=== PATIENT | male | born 1950 | race Hispanic/Latino ===

== ENCOUNTER → 2018-05-26 | Outpatient (CLI) | payer OTHER ==
[~2018-05-26] MED LIST: ALBUTEROL SULFATE 0.083% 2.5 MG/3 ML INH IH ONE
== END | disposition home or self-care (01) ==
LOC: RESP 10:07
PROVIDERS: ATTEND Internal Medicine Cardiovascular Disease
DX: R06.02 Shortness of breath (principal); R06.00 Dyspnea, unspecified
CPT/HCPCS: 94060; 94727; 94729

== ENCOUNTER → 2018-06-01 | Outpatient (CLI) | payer OTHER ==
[~2018-06-01] MED LIST changes: -ALBUTEROL SULFATE 0.083% 2.5 MG/3 ML INH IH ONE; +REGADENOSON 0.4 MG/5 ML PF SYG IVP SCH
== END | disposition home or self-care (01) ==
LOC: SHCH 08:01
PROVIDERS: ATTEND Internal Medicine Cardiovascular Disease
DX: I99.8 Other disorder of circulatory system (principal)
CPT/HCPCS: 78452; 93017; 96374; A9500 ×2; J2785

== ENCOUNTER → 2018-09-14 | Outpatient (CLI) | payer OTHER ==
[~2018-09-14] MED LIST changes: +ASPI-891 PO; +ATOR20TA65 PO; +FLUC100T8 PO; +FURO40TA5 PO; +METO25 PO; +NYST5ORA7 PO; +POTA-79 PO; -REGADENOSON 0.4 MG/5 ML PF SYG IVP SCH; +TAMS0.4C32 PO; +TRAM50TA4 PO; +XALA2.5OS OU
== END | disposition home or self-care (01) ==
LOC: SHCH 15:03
PROVIDERS: ATTEND Internal Medicine Cardiovascular Disease
DX: I82.402 Acute embolism and thrombosis of unspecified deep veins of left lower extremity (principal)
CPT/HCPCS: 93971

== ENCOUNTER → 2018-11-23 | Outpatient (CLI) | payer OTHER ==
[~2018-11-23] MED LIST changes: +REGADENOSON 0.4 MG/5 ML PF SYG IVP SCH
== END | disposition home or self-care (01) ==
LOC: SHCH 10:00
PROVIDERS: ATTEND Internal Medicine Cardiovascular Disease
DX: I25.9 Chronic ischemic heart disease, unspecified (principal); I25.10 Atherosclerotic heart disease of native coronary artery without angina pectoris
CPT/HCPCS: 78452; 93017; 96374; A9500 ×2; J2785

== ENCOUNTER → 2022-05-26 | Outpatient (CLI) | payer OTHER ==
[~2022-05-26] MED LIST changes: -ASPI-891 PO; +ATOR10 PO; -ATOR20TA65 PO; +ESCI-8 PO; -FLUC100T8 PO; +LEVO50TA11 PO; +LOSA25TA41 PO; +METO-408 PO; -METO25 PO; -NYST5ORA7 PO; +OXYB5TAB15 PO; -REGADENOSON 0.4 MG/5 ML PF SYG IVP SCH; +TAMS-1 PO; -TAMS0.4C32 PO; -TRAM50TA4 PO; -XALA2.5OS OU
[2022-05-26 12:46] LABS: CREATININE 1.1 mg/dL (0.5-1.5); POTASSIUM 4.2 mmol/L (3.5-5.1)
== END | disposition home or self-care (01) ==
LOC: LAB 11:51
PROVIDERS: ATTEND Internal Medicine Cardiovascular Disease
DX: I25.10 Atherosclerotic heart disease of native coronary artery without angina pectoris (principal); I10 Essential (primary) hypertension
CPT/HCPCS: 36415; 80048

== ENCOUNTER → 2023-01-14 | Outpatient (CLI) | payer OTHER ==
[~2023-01-14] MED LIST changes: +POTA-364 PO; -POTA-79 PO
== END | disposition home or self-care (01) ==
LOC: RESP 12:51
PROVIDERS: ATTEND Internal Medicine Cardiovascular Disease
DX: R06.02 Shortness of breath (principal); R06.00 Dyspnea, unspecified
CPT/HCPCS: 94010

== ENCOUNTER → 2023-05-08 | Outpatient (CLI) | payer OTHER ==
[~2023-05-08] MED LIST changes: -OXYB5TAB15 PO; +OXYB5TAB20 PO
[2023-05-08 12:30] LABS: BASOPHILS # (AUTO) 0.02 K/uL (0.00-0.20); BASOPHILS % (AUTO) 0.2 % (0.0-5.0); EOSINOPHILS # (AUTO) 0.04 K/uL (0.00-0.70); EOSINOPHILS % (AUTO) 0.4 % (0.0-8.0); HEMATOCRIT 39.1 % (42-54); IMMATURE GRANULOCYTE ABSOLUTE 0.04 K/uL (0-1); LYMPHOCYTES # (AUTO) 1.6 K/uL (1.0-4.8); LYMPHOCYTES % (AUTO) 17.5 % (21.0-51.0); MEAN CORPUSCULAR HEMOGLOBIN 28.8 pg (27.0-33.0); MEAN CORPUSCULAR HGB CONC 32.2 g/dL (32.0-36.0); MEAN CORPUSCULAR VOLUME 89.5 fL (79-99); MONOCYTES # (AUTO) 0.9 K/uL (0.1-1.0); MONOCYTES % (AUTO) 9.4 % (3.0-13.0); NEUTROPHILS # (AUTO) 6.7 K/uL (1.8-7.7); NEUTROPHILS % (AUTO) 72.1 % (40.0-77.0); PLATELET COUNT (AUTO) 197 K/uL (130-400); RED BLOOD CELL COUNT(AUTO) 4.37 MIL/uL (4.50-6.20); RED CELL DISTRIBUTION WIDTH 13.6 % (11.0-15.5); WHITE BLOOD COUNT (AUTO) 9.3 K/uL (4.8-10.8)
[2023-05-08 12:39] LABS: INR 0.96 (0.85-1.15); PROTHROMBIN TIME 11.2 SEC (9.6-11.6)
[2023-05-08 12:40] LABS: CREATININE 1.2 mg/dL (0.5-1.5); PARTIAL THROMBOPLASTIN TIME 28.5 SEC (26.3-35.5); POTASSIUM 4.1 mmol/L (3.5-5.1)
== END | disposition home or self-care (01) ==
LOC: LAB 11:22
PROVIDERS: ATTEND Internal Medicine Cardiovascular Disease
DX: I87.2 Venous insufficiency (chronic) (peripheral) (principal); I87.1 Compression of vein; E66.01 Morbid (severe) obesity due to excess calories; I11.0 Hypertensive heart disease with heart failure; I25.10 Atherosclerotic heart disease of native coronary artery without angina pectoris; I50.33 Acute on chronic diastolic (congestive) heart failure; E78.5 Hyperlipidemia, unspecified; I38 Endocarditis, valve unspecified; Z79.899 Other long term (current) drug therapy; Z68.43 Body mass index [BMI] 50.0-59.9, adult
CPT/HCPCS: 36415; 80048; 85025; 85610; 85730

== ENCOUNTER → 2023-05-12 | Outpatient (CLI) | payer OTHER | END | disposition home or self-care (01) | LOC: RAH 08:45 | PROVIDERS: ATTEND Physician Assistant Medical | DX: K21.9 Gastro-esophageal reflux disease without esophagitis (principal); R13.19 Other dysphagia | CPT/HCPCS: 74220 ==

== ENCOUNTER → 2023-05-25 | Outpatient (CLI) | payer OTHER | END | disposition home or self-care (01) | LOC: SHCH 13:08 | PROVIDERS: ATTEND Internal Medicine Cardiovascular Disease | DX: I87.2 Venous insufficiency (chronic) (peripheral) (principal); Z98.890 Other specified postprocedural states | CPT/HCPCS: 93971 ==

== ENCOUNTER → 2023-06-08 | Outpatient (CLI) | payer OTHER | END | disposition home or self-care (01) | LOC: SHCH 15:28 | PROVIDERS: ATTEND Internal Medicine Cardiovascular Disease | DX: I87.2 Venous insufficiency (chronic) (peripheral) (principal); Z98.890 Other specified postprocedural states | CPT/HCPCS: 93971 ==

== ENCOUNTER → 2023-06-30 | Outpatient (CLI) | payer OTHER ==
[2023-06-30 16:55] LABS: CREATININE 1.1 mg/dL (0.5-1.5); POTASSIUM 4.4 mmol/L (3.5-5.1)
== END | disposition home or self-care (01) ==
LOC: LAB 14:44
PROVIDERS: ATTEND Internal Medicine Cardiovascular Disease
DX: I10 Essential (primary) hypertension (principal)
CPT/HCPCS: 36415; 80048; 83880

== ENCOUNTER → 2023-11-03 | Outpatient (CLI) | payer OTHER ==
[~2023-11-03] MED LIST changes: -POTA-364 PO; +POTA-79 PO
[2023-11-03 16:19] LABS: BASOPHILS # (AUTO) 0.02 K/uL (0.00-0.20); BASOPHILS % (AUTO) 0.2 % (0.0-5.0); EOSINOPHILS # (AUTO) 0.05 K/uL (0.00-0.70); EOSINOPHILS % (AUTO) 0.5 % (0.0-8.0); HEMATOCRIT 42.4 % (42-54); IMMATURE GRANULOCYTE ABSOLUTE 0.07 K/uL (0-1); LYMPHOCYTES % (AUTO) 20.8 % (21.0-51.0); MEAN CORPUSCULAR HEMOGLOBIN 28.8 pg (27.0-33.0); MEAN CORPUSCULAR HGB CONC 31.4 g/dL (32.0-36.0); MEAN CORPUSCULAR VOLUME 91.8 fL (79-99); MONOCYTES # (AUTO) 0.8 K/uL (0.1-1.0); MONOCYTES % (AUTO) 8.7 % (3.0-13.0); NEUTROPHILS # (AUTO) 6.7 K/uL (1.8-7.7); NEUTROPHILS % (AUTO) 69.1 % (40.0-77.0); PLATELET COUNT (AUTO) 175 K/uL (130-400); RED BLOOD CELL COUNT(AUTO) 4.62 MIL/uL (4.50-6.20); RED CELL DISTRIBUTION WIDTH 13.9 % (11.0-15.5); WHITE BLOOD COUNT (AUTO) 9.7 K/uL (4.8-10.8)
[2023-11-03 16:30] LABS: CREATININE 1.2 mg/dL (0.5-1.3); POTASSIUM 4.4 mmol/L (3.5-5.1)
[2023-11-03 16:39] LABS: INR 0.96 (0.85-1.15); PROTHROMBIN TIME 11.4 SEC (9.6-11.6)
[2023-11-03 16:41] LABS: PARTIAL THROMBOPLASTIN TIME 29.6 SEC (26.3-35.5)
== END | disposition home or self-care (01) ==
LOC: LAB 12:45
PROVIDERS: ATTEND Internal Medicine Cardiovascular Disease
DX: Z01.812 Encounter for preprocedural laboratory examination (principal); I87.1 Compression of vein; I87.2 Venous insufficiency (chronic) (peripheral); I89.0 Lymphedema, not elsewhere classified; I45.10 Unspecified right bundle-branch block; I25.10 Atherosclerotic heart disease of native coronary artery without angina pectoris; I11.0 Hypertensive heart disease with heart failure; I50.33 Acute on chronic diastolic (congestive) heart failure; E66.01 Morbid (severe) obesity due to excess calories; Z68.43 Body mass index [BMI] 50.0-59.9, adult; Z95.820 Peripheral vascular angioplasty status with implants and grafts; Z79.02 Long term (current) use of antithrombotics/antiplatelets; Z79.899 Other long term (current) drug therapy
CPT/HCPCS: 36415; 80048; 85025; 85610; 85730